=== PATIENT | female | born 1960 | race Caucasian/White ===

== ENCOUNTER → 2018-12-30 | Outpatient (CLI) | payer OTHER ==
[2014-01-27 14:08] VITALS: BP 141/78
[~2018-12-30] MED LIST: MULT-18 PO; OXYC-316 PO; TRAM300T2 PO; TRAM50TA PO
--- NOTE | 2018-12-30 16:34 | RAD ---
CLINICAL HISTORY: DX: Left Calf pain and swelling with bruised ankle IMP: Left Leg negative for DVT COMPARISON: None available. TECHNIQUE: Ultrasound evaluation of the left lower extremity was performed from the groin to the upper calf with garcia scale, spectral and color doppler evaluation. FINDINGS: The left common femoral vein, and femoral vein, including the saphenous-femoral junction are normal in appearance. Color and spectral Doppler evaluation demonstrates normal spontaneous flow, augmentation and phasicity. The left popliteal vein and visualized calf veins also demonstrate normal compressibility and flow. IMPRESSION: No evidence for left lower extremity DVT. Electronically signed by: Michael Sellers MD (12/30/2018 4:31 PM) [facility]
== END | disposition home or self-care (01) ==
LOC: US 15:52
PROVIDERS: ATTEND Orthopaedic Surgery
DX: M79.662 Pain in left lower leg (principal)
CPT/HCPCS: 93971

== ENCOUNTER → 2019-02-20 | Outpatient (CLI) | payer OTHER ==
[2014-01-27 14:08] VITALS: BP 141/78
--- NOTE | 2019-02-20 15:13 | RAD ---
Three-view left ankle dated 02/20/2019. No comparison available. CLINICAL INDICATION: Left ankle pain after fall. TECHNIQUE: Routine multiplanar multisequence MR imaging performed. FINDINGS: Anterior talofibular ligament and posterior talofibular ligament intact. Calcaneofibular ligament and tibiofibular ligaments are intact. No abnormality of the deltoid complex. Flexor and extensor tendons are intact. Distal Achilles tendon is intact. Plantar fascia is intact. Mild edema within the pre-Achilles fat, nonspecific. There is patchy edema within the subcutaneous tissues of the ankle. No focal fluid collection. No significant ankle joint effusion or loose body. The talar dome is intact. There is moderate degenerative change of the joints of the midfoot with patchy subchondral edema and full-thickness cartilage loss of the distal navicular and intermediate and lateral cuneiform bones. Mild degenerative change of the subtalar joints. IMPRESSION: 1. No evidence of internal derangement. 2. Mild patchy edema within the subcutaneous tissues of the ankle, nonspecific. 3. Moderate degenerative changes at the hindfoot/midfoot. Electronically signed by: Tez Harris MD (02/20/2019 3:10 PM) [id number]
== END | disposition home or self-care (01) ==
LOC: MRI 12:06
PROVIDERS: ATTEND Orthopaedic Surgery
DX: M19.072 Primary osteoarthritis, left ankle and foot (principal); M25.472 Effusion, left ankle
CPT/HCPCS: 73721

== ENCOUNTER → 2021-09-23 | Outpatient (CLI) | payer OTHER ==
[2014-01-27 14:08] VITALS: BP 141/78
--- NOTE | 2021-09-23 10:47 | KCIC ---
MRI STUDY OF THE RIGHT SHOULDER WITHOUT CONTRAST INDICATIONS: Right shoulder pain and limited range of motion after a fall and fracture 4 months ago. Recent radiographic study demonstrated a nondisplaced fracture of the proximal right humerus. COMPARISON: Radiographic study of the right shoulder dated September 05, 2021. TECHNIQUE: Noncontrast MRI sequences of the right shoulder were performed in all 3 planes. FINDINGS: There is mild increased signal within the supraspinatus tendon and infraspinatus tendon con sistent with tendinosis. No complete rotator cuff tear is evident. The subscapularis tendon is intact . The tendon of the long head of the biceps is intact. No muscle atrophy is seen. No subdeltoid or daly bacromial bursitis is seen. 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 T ype III acromial process is seen. These findings may impinge the acromial humeral space. There is mil d chronic erosive change of the lateral aspect of the humeral head which may be seen with chronic imp ingement. There is a nondisplaced nonhealed transverse fracture of the surgical neck of the proximal right humerus. No trabecular bone formation is seen extending across the fracture site and no callus formation is apparent. No marrow infiltrative process is seen. The glenohumeral joint is normally ali gned. There is mild degenerative spurring of the glenohumeral joint. No abnormal joint effusion is se en. No loose body is apparent. A sublingual foramen of the anterior superior aspect of the glenoid la juarez is seen which is a normal anatomical variant. No paralabral ganglion cyst or spinoglenoid notch ganglion cyst is seen. IMPRESSION: Nondisplaced nonhealed transverse fracture of the surgical neck of the proximal right hum erus. No complete rotator cuff tear. Electronically signed by: Carlos Zeng MD (09/23/2021 10:45 AM) [id number]
== END ==
LOC: KCIC MRI 08:13
PROVIDERS: ATTEND Physician Assistant
DX: S42.214A Unspecified nondisplaced fracture of surgical neck of right humerus, initial encounter for closed fracture (principal); M75.111 Incomplete rotator cuff tear or rupture of right shoulder, not specified as traumatic; M19.011 Primary osteoarthritis, right shoulder; M77.8 Other enthesopathies, not elsewhere classified; X58.XXXA Exposure to other specified factors, initial encounter; Y93.89 Activity, other specified; Y92.89 Other specified places as the place of occurrence of the external cause; Y99.8 Other external cause status
CPT/HCPCS: 73221